=== PATIENT | male | born 1960 | race Caucasian/White ===

== ENCOUNTER 2020-11-03 08:43 | Outpatient (REF) | payer BC, SELFPAY ==
[2020-11-03 22:19] LABS: ALT 63 U/L (16-63); AST 26 U/L (15-37); Albumin 3.9 g/dL (3.4-5.0); Alkaline Phosphatase 62 U/L (46-116); Anion Gap 11.3 mmol/L (3-11); BUN 14 mg/dL (7-18); Bilirubin, Total 0.3 mg/dL (0.2-1.0); CO2 26.7 mmol/L (21.0-32.0); Calcium 8.3 mg/dL (8.5-10.1); Calculated LDL 75 mg/dL (<100); Chloride 102 mmol/L (98-107); Cholesterol 169 mg/dL (<200); Glucose 113 mg/dL (74-106); HDL Cholesterol 39 mg/dL (40-60); Potassium 4.1 mmol/L (3.5-5.1); Sodium 140 mmol/L (136-145); Triglyceride 275 mg/dL (<150)
[2020-11-03 22:23] LABS: Hemoglobin A1C 6.3 % (<5.7)
== END 2020-11-03 08:44 | disposition home or self-care (01) ==
LOC: NCHCN 08:43
PROVIDERS: PCP Family Medicine; Visit Provider Family Medicine
DX: Z00.00 Encounter for general adult medical examination without abnormal findings (principal); R73.03 Prediabetes; E78.6 Lipoprotein deficiency; E88.81 Metabolic syndrome and other insulin resistance; E66.9 Obesity, unspecified
CPT/HCPCS: 80053; 80061; 83036

== ENCOUNTER 2020-12-01 16:58 | Outpatient (REF) | payer BC, SELFPAY ==
[2020-12-01 13:30] LABS: Anion Gap 11.2 mmol/L (3-11); BUN 13 mg/dL (7-18); CO2 24.8 mmol/L (21.0-32.0); CREATININE 1.1 mg/dL (0.70-1.30); Calcium 8.7 mg/dL (8.5-10.1); Chloride 102 mmol/L (98-107); Glucose 136 mg/dL (74-106); Potassium 4.3 mmol/L (3.5-5.1); Sodium 138 mmol/L (136-145)
== END 2020-12-01 16:59 | disposition home or self-care (01) ==
LOC: NCHCN 16:58
PROVIDERS: PCP Family Medicine; Visit Provider Family Medicine
DX: I10 Essential (primary) hypertension (principal); E83.51 Hypocalcemia
CPT/HCPCS: 80048; 82306

== ENCOUNTER 2022-01-27 10:07 | Outpatient (REF) | payer BC, SELFPAY ==
[2022-01-27 15:49] LABS: Hemoglobin A1C 5.9 % (<5.7)
[2022-01-27 16:06] LABS: Anion Gap 10.8 mmol/L (3-11); BUN 18 mg/dL (7-18); CO2 25.2 mmol/L (21.0-32.0); CREATININE 1.1 mg/dL (0.70-1.30); Calcium 8.5 mg/dL (8.5-10.1); Calculated LDL 96 mg/dL (<100); Chloride 100 mmol/L (98-107); Cholesterol 180 mg/dL (<200); Glucose 119 mg/dL (74-106); HDL Cholesterol 39 mg/dL (40-60); Potassium 4.4 mmol/L (3.5-5.1); Sodium 136 mmol/L (136-145); Triglyceride 229 mg/dL (<150)
[2022-01-27 16:26] LABS: Vitamin D 25 Total 37.2 ng/mL (30-100)
== END 2022-01-27 10:08 | disposition home or self-care (01) ==
LOC: NCHCN 10:07
PROVIDERS: PCP Family Medicine; Visit Provider Family Medicine
DX: R73.03 Prediabetes (principal); E78.6 Lipoprotein deficiency; I10 Essential (primary) hypertension; E83.51 Hypocalcemia; E66.9 Obesity, unspecified; Z00.00 Encounter for general adult medical examination without abnormal findings; E55.9 Vitamin D deficiency, unspecified
CPT/HCPCS: 80048; 80061; 82306; 83036

== ENCOUNTER 2024-05-24 15:52 | Outpatient (REF) | payer BC, SELFPAY ==
--- OUTSIDE RECORDS SUMMARY | 2024-05-24 15:55 | XMS_ITS | Clinical Summary ---
Author Organization [facility] Address [address] [place] [address] Care Team Providers Care Client Support Coordinator Name Role Phone Unknown, Provider Primary Care Provider [phone] Allergies No known active allergies Medications Medication Sig Dispensed Refills Start Date End Date Status levothyroxine (SYNTHROID) 100 mcg tablet Take 100 mcg by mouth daily. Active Active Problems No known active problems Social History Tobacco Use Types Packs/Day Years Used Date Smoking Tobacco: Former Cigarettes 1.5 25 Smokeless Tobacco: Never Interpersonal Safety Answer Date Record ed Physically Hurt Never 03/22/2020 Verbally Threaten Not on file 03/22/2020 Sex and Gender Information Value Date Recorded Sex Assigned at Not on file Gender Identity Not on file Sexual Orientation Not on file Obstetrics History Last Filed Vital Signs Vital Sign Reading Time Taken Comments Blood Pressure 124/78 09/20/2010 1254 EST Pulse 60 09/20/2010 1254 EST Temperature - - Respiratory Rate - - Oxygen Saturation - - Inhaled Oxygen Concentration - - Weight 109.8 kg (242 lb) 09/20/2010 1254 EST Height 175.3 cm (5' 9) 09/20/2010 1254 EST Body Mass Index 35.74 09/20/2010 1254 EST Plan of Treatment Health Maintenance Due Date Last Done Comments Hepatitis C Screen 1960 RSV Immunization ( o r 60+ Years) (1 - 1-dose 60+ series) 2021 COVID-19 Vaccine ( - 2022-24 season) 2023 Care Teams Client Support Coordinator Relationship Specialty Start Date End Date Unknown, ProviderMD PCP - General 07/27/17
--- OUTSIDE RECORDS SUMMARY | 2024-05-24 15:55 | XMS_ITS | Encounter Summary ---
Author Organization [facility] Address [address] [place] [address] Care Team Providers Care Wellness Health Coach Name Role Phone Jose Rafael Hussein MD Primary Care Provider [phone] Unknown, Provider Primary Care Provider [phone] Encounter Details Date Type Department Care Team (Late st Contact Info) Description 07/21/2017 Historical Results Only [facility] Lab - Main [address] [address] Vega Ghotra MD Social History Tobacco Use Types Packs/Day Years Used Date Smoking Tobacco: Former Cigarettes 1.5 25 Smokeless Tobacco: Never Sex and Gender Information Value Date Recorded Sex Assigned at Not on file Gender Identity Not on file Sexual Orientation Not on file documented as of this encounter Plan of Treatment Not on file documented as of this encounter Procedures Procedure Name Priority Date/Time Associated Diagnosis Comments SURGICAL PATHOLOGY Routine 07/21/2017 documented in this encounter Results * SURGICAL PATHOLOGY (07/21/2017) 07/21/2017 07/21/2017 13: 37 EST Narrative [facility] - 07/24/2017 12:15 EST ----- ------- Name: SHREE MCCARTNEY ? : [birth year] ?Age/Sex: 58/M ?Unit#: [id number] ? Loc: END ? Status: DEP CLI ?? Reg Date: 07/21/17 ? Pt.Phone Number: ? ----- ------- Specimen: [id number] ? STATUS: SOUT ?Spec Date:07/21/17 ? Physician Copies: ?Vega Ghotra MD ?? Tissues: A ?? Endoscopy specimen (HEPATIC FLEXURE) ? Michael Carbajal ? B ?? Endoscopy specimen (DESCENDING) ? C ?? Endoscopy specimen (SIGMOID) ? CPT: 86135 ?? Units: ??3 ?FINAL DIAGNOSIS ? A. COLON, HEPATIC FLEXURE, POLYP, BIOPSY; ? - Tubular adenoma fragments. ? B. DESCENDING COLON, POLYP, BIOPSY; ? - Surface hyperplastic changes only. ? C. SIGMOID COLON, POLYP, BIOPSY; ? - Tubular adenoma. ? GROSS DESCRIPTION ? A. ??Received in formalin labeled with the patient's name and Hepatic colon ? polyp are two mucosal tissue fragments one measuring 0.4 cm and the other 0.7 ? cm. es 1 ? B. ??Received in formalin labeled with the patient's name and Descending colon ? polyp is a single mucosal tissue fragment measuring 0.5 cm. es 1 ? C. ??Received in formalin labeled with the patient's name and Sigmoid colon ? polyp is a single polypoid tissue fragment measuring 0.4 x 0.4 x 0.3 cm. es ? 1 KF ?? PREOP DX/CLINICAL HISTORY ?History of polyps. Signed ____(signature on file)____ Candace Wall M.D. 07/24/17 By the signature above, the attending physician certifies that he/she has personally conducted a gross and/or microscopic examination of the described specimens and rendered or confirmed the above diagnosis. Test Performed by [facility], [address] [place] [address] Head Strength And Conditioning Coach: Candace Wall MD PHD ----- ------- Vega Ghotra MD PATHOLOGY ORDERABLES [facility] documented in this encounter Visit Diagnoses Not on filedocumented in this encounter Care Teams Wellness Health Coach Relationship Specialty Start Date End Date Jose Rafael Hussein MD [address] [place] [phone] PCP - General 09/16/10 07/26/17 Unknown, Provider, [address] [place] [phone] PCP - General 07/27/17 documented as of this encounter
--- OUTSIDE RECORDS SUMMARY | 2024-05-24 15:55 | XMS_ITS | Encounter Summary ---
Author Organization [facility] Address [address] [place] [address] Care Team Providers Care Bulb Brander Name Role Phone Jose Rafael Hussein MD Primary Care Provider [phone] Reason for Visit * Reason Onset Date Comments Results 05/02/2011 Encounter Details Date Type Department Care Team (Late st Contact Info) Description 05/02/2011 Telephone [facility] Endocrinology - [address] [address] Karen Gomes MD [address] [place], [place] [id number] Results Social History Tobacco Use Types Packs/Day Years Used Date Smoking Tobacco: Former Cigarettes 1.5 25 Smokeless Tobacco: Never Sex and Gender Information Value Date Recorded Sex Assigned at Not on file Gender Identity Not on file Sexual Orientation Not on file documented as of this encounter Miscellaneous Notes * Telephone Encounter - Marifer Aj - 05/02/2011 1349 EDT Patient's calling for results of labs done about 3 weeks ago at [facility]. documented in this encounter Plan of Treatment Not on file documented as of this encounter Visit Diagnoses Not on filedocumented in this encounter Care Teams Bulb Brander Relationship Specialty Start Date End Date Jose Rafael Hussein MD [address] [place] [phone] PCP - General 09/16/10 07/26/17 documented as of this encounter
--- OUTSIDE RECORDS SUMMARY | 2024-05-24 15:55 | XMS_ITS | Referral Summary ---
Author Organization [facility] Address [address] [place] [address] Care Team Providers Care Senior Ux Designer Name Role Phone Unknown, Provider Primary Care Provider [phone] Allergies No known active allergies Medications Medication [...] on file Sexual Orientation Not on file Last Filed Vital Signs Vital Sign Reading Time Taken Comments Blood Pressure 124/78 09/20/2010 1254 EST Pulse 60 09/20/2010 1254 EST Temperature - - Respiratory Rate - - Oxygen Saturation - - Inhaled Oxygen Concentration - - Weight 109.8 kg (242 lb) 09/20/2010 1254 EST Height 175.3 cm (5' 9) 09/20/2010 1254 EST Body Mass Index 35.74 09/20/2010 1254 EST Plan of Treatment Not on file Care Teams Senior Ux Designer Relationship Specialty Start Date End Date Unknown, Provider, PCP - General 07/27/17
--- OUTSIDE RECORDS SUMMARY | 2024-05-24 15:55 | XMS_ITS | Encounter Summary ---
Author Organization [facility] Address [address] [place] [address] Care Team Providers Care Formula Weigher Name Role Phone Jose Rafael Hussein MD Primary Care Provider [phone] Unknown, Provider Primary Care Provider [phone] Encounter Details Date Type Department Care Team (Late st Contact Info) Description 06/27/2013 Historical Results Only [facility] - Main [address] [id number] Vega Ghotra MD Social History Tobacco Use [...] Date/Time Associated Diagnosis Comments SURGICAL PATHOLOGY Routine 06/27/2013 documented in this encounter Results * SURGICAL PATHOLOGY (06/27/2013) 06/27/2013 06/27/2013 13: 46 EST Narrative [facility] - 06/28/2013 16:17 EST ----- ------- Name: SHREE MCCARTNEY ? : [birth year] ?Age/Sex: 59/M ?Unit#: [id number] ? Loc: END ? Status: DEP CLI ?? Reg Date: 06/27/13 ? Pt.Phone Number: ? ----- ------- Specimen: [id number] ? STATUS: SOUT ?Spec Date:06/27/13 ? Physician Copies: ?Vega Ghotra MD ?? Tissues: A ?? Gastrointestinal Tract (HEPATIC FLEXURE/TRANSVERSE C) ?Jose Rafael Hussein MD ? B ?? Gastrointestinal Tract (PROXIMAL RECTO) ? CPT: 90167 ?? Units: ??2 ?FINAL DIAGNOSIS ? A. ??Colon, hepatic flexure ?? transverse, polyps, biopsy; ? - Sessile serrated adenoma and tubular adenoma. ? B. ??Proximal rectum, polyp, biopsy; ? - Serrated adenoma. ? GROSS DESCRIPTION ? A. ??Received in formalin labeled with the patient's name and hepatic flexure ? polyp/transverse polyp, cold snare are five mucosal fragments ranging from 0.2 ? to 0.4 cm, e.s. following additional fixation in Bouin's. ? B. ??Received in formalin labeled with the patient's name and proximal rectal ? polyp, hot snare is a distinct polyp measuring 1.1 x 0.4 x 0.4 cm, bisected, ? e.s. following additional fixation in Bouin's. ??CP ?? PREOP DX/CLINICAL HISTORY ?SCREENING Signed ____(signature on file)____ Candace Wall M.D. 06/28/13 By the signature above, the attending physician certifies that he/she has personally conducted a gross and/or microscopic examination of the described specimens and rendered or confirmed the above diagnosis. Test Performed by [facility], [address] [place] [id number] Team Otr Truck Driver: Candace Wall MD PHD ----- ------- Vega Ghotra MD PATHOLOGY ORDERABLES [facility] documented in this encounter Visit Diagnoses Not on filedocumented in this encounter Care Teams Formula Weigher Relationship Specialty Start Date End Date Jose Rafael Hussein MD [address] [place] [phone] PCP - General 09/16/10 07/26/17 Unknown, Provider, [address] [place] [phone] PCP - General 07/27/17 documented as of this encounter
--- OUTSIDE RECORDS SUMMARY | 2024-05-24 15:55 | XMS_ITS | Encounter Summary ---
Author Organization [facility] Address [address] [place] [address] Care Team Providers Care Panelboard Operator Name Role Phone Unavailable Primary Care Provider Unavailabl e Encounter Details Date Type Department Care Team (Late st Contact Info) Description 04/10/2007 Before PRISM Converted Visit (Maple) [facility] [place] - Maple conversion [address] [place] [address] Paty Moreno MD [address] [place] [address] Social History Tobacco Use Types Packs/Day Years Used Date Smoking Tobacco: Never Assessed Sex and Gender Information Value Date Recorded Sex Assigned at Not on file Gender Identity Not on file Sexual Orientation Not on file documented as of this encounter Progress Notes * Paty Moreno MD - 06/30/2009 171 EST DIVISION OF DERMATOLOGY - [place] PROGRESS/FOLLOWUP NOTE - 04/10/2007 CHIEF COMPLAINT Cyst on back. SUBJECTIVE Initial visit with me for this 47-year-old man last seen in [address] Amador. He wasnoted at thattime to have an epidermal inclusion cyst on his back. It recently became symptomatic and he saw who removed it about two months ago. He is here today requesting evaluation of the site. He wants to know if it is completely gone. He is not having any associated symptoms. He has no other skin concerns. OBJECTIVE Skin above the waist was examined including face, neck, chest, back, abdomen and upper extremities.Moderate actinic damage is visible. On the midback there is a small diagonal surgical scar measuring about 1.5 cm. The scar in the middle is and there is a comedonal plug within it. ASSESSMENT Giant comedone status post excision of cyst. PLAN 1. The contents were extracted and shown to patient. Explained that he does have a persistent comedonal pore which will likely accumulate keratinaceous debris. If he wishes to have this surgically removed he can follow up at his convenience. Otherwise he was reassured that this is not a serious condition and that no further treatment is necessary. 2. He will consider the options and follow up p.r.n. Signed by Paty Moreno MD 04/19/2007 10:41 Sukhdev Bui MD Paty Moreno MD - Paty Moreno MD - dd Job ID: [id number] Doc ID: [id number] cc: Zenobia Hussein MD - Payt Moreno MD - dd Job ID: [id number] Doc ID: [id number] cc: Zenobia Hussein MD documented in this encounter Plan of Treatment Not on file documented as of this encounter Visit Diagnoses Not on filedocumented in this encounter
--- OUTSIDE RECORDS SUMMARY | 2024-05-24 15:55 | XMS_ITS ---
Author Organization Unknown Address [address] [place] [phone] Phone Care Team Providers Care Drum Tender Name Role Phone JERRICA MILLSAN Attending Unavailable Social History Type Status Start Date End Date Code Code Syst em Smoking History Never smoker (Never Smoked) [id number] SNOMED CT Sex Male Hospital Discharge Instructions Should you have any questions prior to discharge, please contact a member of your healthcare team. If you have left the hospital and have any questions, please contact your primary care physician. Reason For Referral No Data Found Plan of Treatment No Data Found Encounters Encounter Diagnosis Start Date Code Code Sys tem Migraine without aura, not i ntractable, without status migrainosus 02/26/2021 SNOMED-CT Personal Care Team Section Performer Name Performer Role Active Date Inactive Da te
--- OUTSIDE RECORDS SUMMARY | 2024-05-24 15:55 | XMS_ITS | Encounter Summary ---
Author Organization [facility] Address [address] [place] [address] Care Team Providers Care Chair Post Machine Operator Name Role Phone Jose Rafael Hussein MD Primary Care Provider [phone] Reason for Visit * Reason Onset Date Comments Follow-up 03/07/2011 Encounter Details Date Type Department Care Team (Late st Contact Info) Description 03/07/2011 Telephone [facility] Endocrinology - [address] [address] Karen Gomes MD [address] [place], [place] [id number] Follow-up Social History Tobacco Use Types Packs/Day Years Used Date Smoking Tobacco: Former Cigarettes 1.5 25 Smokeless Tobacco: Never Sex and Gender Information Value Date Recorded Sex Assigned at Not on file Gender Identity Not on file Sexual Orientation Not on file documented as of this encounter Miscellaneous Notes * Telephone Encounter - Karen Gomes - 03/07/2011 1529 EDT Needs new lab slip. Will send and get labs done at [facility]. * Telephone Encounter - Melissa Whittaker - 03/07/2011 1004 EDT Pt had appt about 6 weeks ago and a thyroid test was discuss. Requesting call back to discuss wherept can have test preformed. documented in this encounter Plan of Treatment Not on file documented as of this encounter Visit Diagnoses Diagnosis Nonspecific abnormal results of thyroid function study- Primary documented in this encounter Care Teams Chair Post Machine Operator Relationship Specialty Start Date End Date Jose Rafael Hussein MD [address] [place] [phone] PCP - General 09/16/10 07/26/17 documented as of this encounter
--- OUTSIDE RECORDS SUMMARY | 2024-05-24 15:55 | XMS_ITS ---
Author Organization Unknown Address [address] [place] [phone] Phone Care Team Providers Care Ferry Captain Name Role Phone JERRICA CORONEL Attending Unavailable Social History Type Status Start Date End Date Code Code Syst em Smoking History Never smoker (Never Smoked) [id number] SNOMED CT Sex Male Hospital Discharge Instructions [...] Code Sys tem Migraine without aura, not refractory 06/20/2022 [id number] SNOMED-CT Personal Care Team Section Performer Name Performer Role Active Date Inactive Da te
--- OUTSIDE RECORDS SUMMARY | 2024-05-24 15:55 | XMS_ITS | Encounter Summary ---
Author Organization [facility] Address [address] [place] [address] Care Team Providers Care Surgical Scrub Technician Name Role Phone Jose Rafael Hussein MD Primary Care Provider [phone] Reason for Visit * Reason Comments Hyperthyroidism New Patient Encounter Details Date Type Department Care Team (Late st Contact Info) Description 09/20/2010 13:00 EST Office Visit [facility] Endocrinology - [address] [phone] Unknown, ProviderMD Karen Gomes MD [address] [place] [address] Nonspecific abnormal results of thyroid function study (Primary Dx) Social History Tobacco Use Types Packs/Day Years Used Date Smoking Tobacco: Former Cigarettes 1.5 25 Smokeless Tobacco: Never Sex and Gender Information Value Date Recorded Sex Assigned at Not on file Gender Identity Not on file Sexual Orientation Not on file documented as of this encounter Last Filed Vital Signs Vital Sign Reading Time Taken Comments Blood Pressure 124/78 09/20/2010 1254 EST Pulse 60 09/20/2010 1254 EST Temperature - - Respiratory Rate - - Oxygen Saturation - - Inhaled Oxygen Concentration - - Weight 109.8 kg (242 lb) 09/20/2010 1254 EST Height 175.3 cm (5' 9) 09/20/2010 1254 EST Body Mass Index 35.74 09/20/2010 1254 EST documented in this encounter Patient Instructions * Patient Instructions* Karen Gomes - 09/20/2010 13:39 EST Check labs in early November documented in this encounter Progress Notes * Karen Gomes - 09/20/2010 1275 EST Endocrinology Initial Thyroid Evaluation 09/20/2010 SUBJECTIVE: Palomo Dobbs is a 50 y.o. male who I am asked to see in consultation for evaluation of Abnormal thyroid function tests. Mr. Dobbs had been experiencing several months of throat irritation and was concerned that it was his thyroid. At his annual physical in July he had TFTs drawn which included anormal TSH and Free T3, but a slightly low Free T4. He was started on 100mcg levothyroxine and referred here. Palomo Dobbs reports the following: SYMPTOM YES or NO Behavior problems No Changes in vision No Choking sensation No Cold intolerance No Constipation yes Cough No Depression No Diarrhea No Difficulty swallowing Occasional globus sensation Double vision No Dry skin No Emotional lability No Enlargement of neck No Exophthalmos No Eye pain No Myalgia No Fatigue No Goiter No Hair loss No Headache No Heat intolerance No Hoarseness Hyperness Occasional Increased appetite No Increased stool frequency No Increased urinary frequency No Irritability No Jitteriness No Mood swings No Myalgia No Muscle cramps No Neck pain No Numbness or tingling No Palpitations No Photophobia No Poor eating No Poor handwriting No Poor sleeping No Puffy eyes No Restleness No Sexually active No Smoking No Sterilized No Tachycardia No Tremor No Weight gain No Weigh loss No Symptoms have been present for 6 months. The patient denies URI symptoms. He does report occasionalpost nasal gtt/sinus congestion as well as heartburn. Family history includes no thyroid abnormalities. Prior studies/tests include Prior Thyroid Labs: TSH: 1.24, FT4: 0.6 and FT3: 3.3. PAST MEDICAL HISTORY History reviewed. No pertinent past medical history. History reviewed. No pertinent past surgical history. History reviewed. No pertinent family history. History Social History ??? Marital Status: Spouse Name: N/A Number of Children: N/A ??? Years of Education: N/A Social History Main Topics ??? Smoking status: Former Smoker -- 1.5 packs/day for 25 years ??? Smokeless tobacco: Never Used ??? Alcohol Use: rare ??? Drug Use: ??? Sexually Active: Other Topics Concern ??? None Social History Narrative ??? None MEDICATIONS Current outpatient prescriptions Medication Sig Dispense Refill ??? levothyroxine (SYNTHROID) 100 mcg tablet Take 100 mcg by mouth daily. ALLERGIES Review of patient's allergies indicates no known allergies. REVIEW OF SYSTEMS: Pertinent items are noted in Subjective/HPI OBJECTIVE: Vitals: BP 124/78 Pulse 60 Ht 175.3 cm (69) Wt 109.77 kg (242 lb) BMI: Body mass index is 35.74 kg/(m^2). General: alert, cooperative, no distress Eyes: no lid lag, periorbital edema, stare, proptosis or exophthalamus. EOM full. Neck: supple, symmetrical, trachea midline, mild anterior cervical adenopathy and thyroid: not enlarged, symmetric, no tenderness/mass/nodules Thyroid: no palpable nodule Lung: clear to auscultation bilaterally Heart: regular rate and rhythm, S1, S2 normal, no murmur, click, rub or gallop Abdomen: soft, non-tender; bowel sounds normal; no masses, no organomegaly Extremities: extremities warm, atraumatic, no cyanosis or edema positive pulses bilat Pulses: 2+ and symmetric Skin: smooth, warm and dry Neuro: reflexes normal with no hung-up relaxation phase Ultrasound: See separate report for details. Normal thyroid gland. ASSESSMENT: 1. Nonspecific abnormal results of thyroid function study (794.5) ENDOCRINE CLINIC US THYROID Abnormal thyroid function tests. Clinically Mr. Dobbs is euthyroid and it does not sound that there has been any change in symptoms with the initiation of the medication. The TSH is the most sensitivetest for primary thyroid disorders and his was normal. Unfortunately, the free T4 assay can be prone to error and is a calculated (not a directly measured) value. It is possible for secondary hypothyroidism to present with lab values such as these, however, this is exceeding uncommon as TSH function is well preserved in the pituitary and there are no symptoms of other pituitary hormone disorders in this patient plus a normal T3. We have agreed for him to stop the levothyroxine. We will repeat TFTs in 6-8 weeks to allow for his pituitary thyroid to reestablish an equilibrium. The patient was in agreement of this plan. In regard to his sore throat, gastric reflux and post nasal drip are high on my differential and hemay benefit from an ENT visit as these two entities would have very treatments. PLAN: 1. TFT's in 6-8 weeks. Pt to obtain in [place] as he is occasionally in the area. 2. Stop levothyroxine 3. Consider ENT referral for sore throat 4. The risks and benefits of my recommendations, as well as other treatment options were discussed with the patient today. Questions were answered. 5. A follow up appointment in the Endocrinology Clinic was not scheduled for Mr. Dobbs, however should the patient or his primary care physician have any additional questions or concerns regarding hisevaluation we would be happy to see him back at any time. The patient was in agreement of this plan. Karen Gomes MD 09/20/2010 16:12 Attestation statement: I saw and examined the patient with the resident/fellow. I agree with the findings and plan of care documented in the resident's/fellow's note. documented in this encounter Miscellaneous Notes * Scanned Note-Null - Inpatient, Physician - 09/24/2010 1218 ESTAssociated Order(s): RADIOLOGY - SCANNED documented in this encounter Plan of Treatment Not on file documented as of this encounter Procedures Procedure Name Priority Date/Time Associated Diagnosis Comments RADIOLOGY - SCANNED 09/24/2010 1 2:18 EST ENDOCRINE CLINIC US THYROID Routine 09/20/2010 Nonspecific abnormal results of thyroid function study documented in this encounter Results * RADIOLOGY - SCANNED (09/24/2010 12:18 EST) Anatomical Region Laterality Modality Other 09/24/2010 12:1 8 EST Narrative Procedure Note Inpatient, Physician - 09/24/2010 12:18 EST Physician Inpatient MD WOOD OTHER IMAGING ORDERABLES * ENDOCRINE CLINIC US THYROID (09/20/2010) Anatomical Region Laterality Modality Other Narrative 09/20/2010 Utilizing a [employer] System, a biplanar B-mode ultrasound was performed of the thyroid and neck structures. ??The right lobe of the thyroid measures 3.09 x 1.52 x 1.40 centimeters. ??The left lobe of the thyroid measures 2.77 x 1.36 x 1.92 centimeters. ??The isthmus of the gland measures 0.24 centimeters. ??The echotexture of the gland is homogeneous. ??There are no nodules in the gland. Impression: ??Normal thyroid gland. Claudia Mcknight MD PhD IMG US ORDERABLES documented in this encounter Visit Diagnoses Diagnosis Nonspecific abnormal results of thyroid function study- Primary documented in this encounter Historical Medications * This list may reflect changes made after this encounter. Medication Sig Dispensed Refills Start Date End Date levothyroxine (SYNTHROID) 100 mcg tablet Take 100 mcg by mouth daily. added in this encounter Care Teams Surgical Scrub Technician Relationship Specialty Start Date End Date Jose Rafael Hussein MD [address] [place] [id number] PCP - General 09/16/10 07/26/17 documented as of this encounter
--- OUTSIDE RECORDS SUMMARY | 2024-05-24 15:55 | XMS_ITS | Encounter Summary ---
Author Organization [facility] Address [address] [place] [address] Care Team Providers Care Assembler 1St Shift Name Role Phone Jose Rafael Hussein MD Primary Care Provider [phone] Encounter Details Date Type Department Care Team (Latest Contact Info) Description 07/21/2017 9:46 EST - 07/21/2017 23:59 EST Hospital Encounter [facility] [address] [place] [address] Unknown, ProviderMD Discharge Disposition: Auto Discharge Social History Tobacco Use Types Packs/Day Years Used Date Smoking Tobacco: Former Cigarettes 1.5 25 Smokeless Tobacco: Never Sex and Gender Information Value Date Recorded Sex Assigned at Not on file Gender Identity Not on file Sexual Orientation Not on file documented as of this encounter Medications at Time of Discharge Medication Sig Dispensed Refills Start Date End Date levothyroxine (SYNTHROID) 100 mcg tablet Take 100 mcg by mouth daily. documented as of this encounter Discharge Disposition Disposition Code Departure Means Destination Auto Discharge Home documented in this encounter Plan of Treatment Not on file documented as of this encounter Visit Diagnoses Not on filedocumented in this encounter Care Teams Assembler 1St Shift Relationship Specialty Start Date End Date Jose Rafael Hussein MD [address] [place] [id number] PCP - General 09/16/10 07/26/17 documented as of this encounter
[2024-05-24 21:28] LABS: Anion Gap 10.2 mmol/L (3-11); BUN 13 mg/dL (7-18); CO2 26.8 mmol/L (21.0-32.0); CREATININE 0.9 mg/dL (0.70-1.30); Calcium 9.5 mg/dL (8.5-10.1); Chloride 104 mmol/L (98-107); Estimated GFR 95.97 (mL/min/1.73m2); Glucose 107 mg/dL (74-106); Potassium 4.2 mmol/L (3.5-5.1); Sodium 141 mmol/L (136-145)
== END 2024-05-24 15:53 | disposition home or self-care (01) ==
LOC: NCHCN 15:52
PROVIDERS: PCP Family Medicine; Visit Provider Family Medicine
DX: I10 Essential (primary) hypertension (principal); R73.03 Prediabetes
CPT/HCPCS: 80048; 83036